=== PATIENT | female | born 1995 | race African-American/Black ===

== ENCOUNTER 2017-05-22 15:55 | Inpatient (IN) ==
[2017-05-22] MEDS ORDERED: DINOPROSTONE 10 MG VAG.INSERT VAG ONE (16:10)
[2017-05-22 16:30] LABS: Basophils # 0.1 10*3/uL (0.0-0.2); Basophils % 0.4 % (0.0-0.8); Eosinophils # 0.1 10*3/uL (0.0-0.87); Eosinophils % 0.8 % (0.00-10.9); Hematocrit 34.7 VOL% (35.7-47.0); Immature Granulocytes % 0.6 %; Immature Granulocytes Absolute 0.08 #; Lymphocytes # 1.6 10*3/uL (1.4-4.0); Lymphocytes % 11.3 % (21.3-54.2); Mean Corpuscular HGB Conc 31.7 GM/DL (32-36); Mean Corpuscular Hemoglobin 25 PG (27-34); Mean Corpuscular Volume 79.2 FL (87-102); Mean Platelet Volume 10.9 FL (9.6-12.0); Monocytes # 1.1 10*3/uL (0.11-0.8); Monocytes % 7.8 % (1.7-12.7); NRBC # 0.02 10*3/uL; Neutrophils % 79.1 % (38.7-73.9); Platelet Count 392 T/CUMM (130-400); Red Blood Count 4.38 MC/CUMM (3.8-5.5); White Blood Count 13.8 T/CUMM (4-12)
[2017-05-22 16:59] LABS: Alanine Aminotransferase 14 U/L (13-56); Albumin 2.6 G/DL (3.4-5.0); Alkaline Phosphatase 195 U/L (45-117); Aspartate Amino Transferase 24 U/L (0-37); Bilirubin,Total < 0.39 MG/DL (0.2-1.0); Blood Urea Nitrogen 7 MG/DL (7-18); Total Protein 7.2 G/DL (6.4-8.3)
[2017-05-22 17:00] LABS: Glucose 86 MG/DL (74-106); Potassium 4.4 MMOL/L (3.5-5.1); Sodium 136 MMOL/L (136-145)
[2017-05-22 19:48] LABS: INR 0.9; PT Patient Result 9.3 SECS; Partial Thromboplastin Time 26.2 SECS (0-40)
[2017-05-22 20:06] LABS: Alanine Aminotransferase 15 U/L (13-56); Albumin 2.9 G/DL (3.4-5.0); Alkaline Phosphatase 203 U/L (45-117); Aspartate Amino Transferase 21 U/L (0-37); Bilirubin,Total < 0.39 MG/DL (0.2-1.0); Blood Urea Nitrogen 9 MG/DL (7-18); Calcium 8.5 MG/DL (8.5-10.1); Glucose 87 MG/DL (74-106); Osmolality,Calculated 270.8 MOS/KG (273-304); Potassium 4.4 MMOL/L (3.5-5.1); Sodium 137 MMOL/L (136-145); Total Protein 7.2 G/DL (6.4-8.3); Uric Acid 3.7 MG/DL (2.6-6.0)
[2017-05-22] MEDS ORDERED: BUTORPHANOL 1 MG/ML VIAL IV PRN (23:55)
[2017-05-23] MEDS: LACTATED RINGERS 1,000 ML IV SCH ×2 (00:05→07:58)
[2017-05-23] MEDS: BUTORPHANOL 2 MG/ML VIAL IV PRN ×2 (00:20→07:42)
[2017-05-23] MEDS: ONDANSETRON 4 MG/2 ML VIAL IV PRN ×2 (00:20→07:51)
[2017-05-23] MEDS ORDERED: ceFAZolin 1,000 MG in SYRINGE 1 EACH IV SCH (02:15)
[2017-05-23] MEDS ORDERED: OXYTOCIN/LR 20 UNIT/1,000 ML BAG IV SCH (06:00)
[2017-05-23] MEDS ORDERED: AMPICILLIN INJ 2,000 MG in SODIUM CHLORIDE 0.9% 50 ML IV ONE (06:13)
[2017-05-23] MEDS ORDERED: ePHEDrine 50 MG/ML AMP IV PRN (11:16)
[2017-05-23] MEDS ORDERED: LACTATED RINGERS 1,000 ML IV ONE (11:16)
[2017-05-23] MEDS ORDERED: diphenhydrAMINE 50 MG/1 ML VIAL IV PRN ×2 (11:16)
[2017-05-23] MEDS ORDERED: PROMETHAZINE 25 MG/1 ML VIAL IM ONE (11:16)
[2017-05-23] MEDS ORDERED: FAMOTIDINE 20 MG/2 ML VIAL IV ONE (11:16)
[2017-05-23] MEDS ORDERED: CITRIC ACID/SODIUM CITRATE 30 ML UDCUP PO ONE (11:16)
[2017-05-23] MEDS ORDERED: hydrOXYzine HCL 25 MG/1 ML VIAL IM PRN (11:16)
[2017-05-23] MEDS ORDERED: fentaNYL 2 MCG/ROPIV 0.2% EPID 150 ML EPIDURAL SCH (11:30)
[2017-05-23] MEDS ORDERED: LACTATED RINGERS 1,000 ML IV SCH ×2 (11:30→19:00)
[2017-05-23 14:01] LABS: Apearance,Urine CLEAR (Clear); Bilirubin,Urine Negative (Negative); Blood, Urine Negative (Negative); Glucose,Urine (UA) Negative (Negative); Ketones,Urine Negative (Negative); Nitrite,Urine Negative (Negative); Protein,Urine Negative; Urine Color Yellow (Yellow); Urine Specific Gravity 1.011 (1.001-1.035)
[2017-05-23 14:02] LABS: Mucus,Urine Occasional /LPF (Occasional); Urine Urobilinogen < 2.0 EU/DL (0.2-1.0); WBC,Urine 1 /HPF (0-6)
[2017-05-23] MEDS: AMPICILLIN INJ 1,000 MG in SODIUM CHLORIDE 0.9% 100 ML IV SCH ×2 (14:05→18:43)
[2017-05-23] MEDS ORDERED: TERBUTALINE 1 MG/1 ML VIAL SUBCUT ONE ×2 (17:49→17:51)
[2017-05-23 18:34] LABS: Cord Arterial Blood HCO3 17.5 MMOL/L
[2017-05-23 18:36] LABS: Cord Venous Blood HCO3 24.4 MMOL/L; Cord Venous Blood PCO2 54.8 MMHG; Cord Venous Blood PO2 24.5 MMHG
[2017-05-23] MEDS ORDERED: TISSUE ADHESIVE 1 EACH APPLICATOR TOP ONE (18:42)
[2017-05-23] MEDS ORDERED: OXYTOCIN/LR 20 UNIT/1,000 ML BAG IV ONE (18:58)
[2017-05-23] MEDS ORDERED: ACETAMINOPHEN 325 MG TABLET PO PRN (18:58)
[2017-05-23] MEDS ORDERED: RHO(D) IMMUNE GLOBULIN 300 MCG SYRINGE IM ONE (18:58)
[2017-05-23] MEDS ORDERED: ONDANSETRON 4 MG/2 ML VIAL IV PRN (18:58)
[2017-05-23] MEDS ORDERED: MORPHINE 10 MG/10 ML VIAL ONE (19:07)
[2017-05-24] MEDS: ONDANSETRON 4 MG/2 ML VIAL IV PRN (00:14)
[2017-05-24] MEDS ORDERED: ceFAZolin 1,000 MG in SYRINGE 1 EACH IV SCH (02:00)
[2017-05-24] MEDS: DOCUSATE SODIUM 100 MG CAPSULE PO SCH ×3 (05:19→23:11)
[2017-05-24] MEDS: MAGNESIUM HYDROXIDE SUSP 30 ML UDCUP PO PRN ×2 (10:03→23:11)
[2017-05-24] MEDS: MULTIVITAMIN (PRENATAL) TABLET PO SCH (10:03)
[2017-05-24] MEDS: SIMETHICONE CHEW 80 MG TABLET PO PRN ×2 (10:04→23:11)
[2017-05-24] MEDS: IBUPROFEN 800 MG TABLET PO PRN (11:26)
[2017-05-25] MEDS: IBUPROFEN 800 MG TABLET PO PRN ×2 (00:01→12:30)
[2017-05-25] MEDS ORDERED: HYDROCORTISONE 2.5% RECTAL CREAM 30 GM TUBE TOP PRN (01:23)
[2017-05-25] MEDS ORDERED: WITCH HAZEL PADS 100/JAR TOP PRN (01:23)
[2017-05-25 07:14] VITALS: BP 125/80
[2017-05-25] MEDS: SIMETHICONE CHEW 80 MG TABLET PO PRN (09:42)
[2017-05-25] MEDS: MAGNESIUM HYDROXIDE SUSP 30 ML UDCUP PO PRN (09:43)
[2017-05-25] MEDS: MULTIVITAMIN (PRENATAL) TABLET PO SCH (09:44)
[2017-05-25] MEDS: DOCUSATE SODIUM 100 MG CAPSULE PO SCH (09:44)
[2017-05-25] MEDS ORDERED: INFLUENZA VIRUS VACCINE 0.5 ML SYRINGE IM ONE (10:42)
== END 2017-05-25 13:00 | disposition home or self-care (01) | DRG 540 ==
LOC: N.LDOUT 15:55 → N.LD 16:01 → N.OB 05-23 22:00
PROVIDERS: ADMIT Obstetrics & Gynecology; ATTEND Obstetrics & Gynecology
PROC: LDCSECT (ICD-10-PCS; 2017-05-23 18:00)

== ENCOUNTER 2020-09-17 03:15 | Inpatient (IN) ==
[2020-09-17 02:54] LABS: Bacteria,Urine Occasional /HPF (Few); Bilirubin,Urine Negative (Negative); Blood, Urine Negative (Negative); Glucose,Urine (UA) Negative (Negative); Ketones,Urine Negative (Negative); Mucus,Urine Occasional /LPF (Occasional); Nitrite,Urine Negative (Negative); Protein,Urine Negative; RBC,Urine 2 /HPF (0-4); Squamous Epithelial Cell,Urine Occasional /HPF (0-10); Urine Appearance CLEAR (Clear); Urine Color Yellow (Yellow); Urine Specific Gravity 1.006 (1.001-1.035); Urine Urobilinogen < 2.0 EU/DL (0.2-1.0)
[2020-09-17] MEDS ORDERED: CITRIC ACID/SODIUM CITRATE 30 ML UDCUP PO ONE (03:16)
[2020-09-17] MEDS ORDERED: FAMOTIDINE 20 MG/2 ML VIAL IV ONE (03:16)
[2020-09-17] MEDS ORDERED: TRANEXAMIC ACID 1,000 MG/10 ML VIAL ONE (03:33)
[2020-09-17] MEDS ORDERED: miSOPROStoL 200 MCG TABLET ONE (03:33)
[2020-09-17] MEDS ORDERED: METHYLERGONOVINE 0.2 MG/1 ML AMP ONE (03:33)
[2020-09-17] MEDS ORDERED: CARBOPROST TROMETHAMINE 250 MCG/ML AMP IM ONE (03:34)
[2020-09-17 04:41] LABS: Albumin 2.5 G/DL (3.4-5.0); Bilirubin,Total 0.4 MG/DL (0.2-1.0); Calcium 8.8 MG/DL (8.5-10.1); Osmolality,Calculated 269.8 MOS/KG (273-304); Potassium 3.6 MMOL/L (3.5-5.1); Total Protein 7.7 G/DL (6.4-8.2)
[2020-09-17 04:53] LABS: Basophils # 0.1 10*3/uL (0.0-0.2); Basophils % 0.8 % (0.0-0.8); Eosinophils # 0.1 10*3/uL (0.0-0.87); Eosinophils % 0.5 % (0.00-10.9); Hematocrit 27.6 VOL% (35.7-47.0); Immature Granulocytes % 0.5 %; Immature Granulocytes Absolute 0.06 #; Lymphocytes % 16.4 % (21.3-54.2); Mean Corpuscular Volume 69.2 FL (87-102); Mean Platelet Volume 11.6 FL (9.6-12.0); Monocytes % 9.1 % (1.7-12.7); NRBC # 0.05 10*3/uL; Neutrophils % 72.7 % (38.7-73.9); Platelet Count 384 T/CUMM (130-400); Red Blood Count 3.99 MC/CUMM (3.8-5.5); Red Cell Distribution Width 24.7 % (9.3-17.3); White Blood Count 11.9 T/CUMM (4-12)
[2020-09-17] MEDS: LACTATED RINGERS 1,000 ML IV SCH ×2 (05:23→06:41)
[2020-09-17] MEDS ORDERED: BUPIVACAINE SPINAL 0.75% 2 ML AMP SPINAL ONE (07:15)
[2020-09-17] MEDS ORDERED: OXYTOCIN/LR 20 UNIT/1,000 ML BAG IV ONE ×2 (08:00→08:32)
[2020-09-17] MEDS ORDERED: ACETAMINOPHEN INJ 1,000 MG/100 ML VIAL IV ONE (08:05)
[2020-09-17] MEDS ORDERED: KETOROLAC 30 MG/1 ML VIAL ONE (08:05)
[2020-09-17] MEDS ORDERED: DEXAMETHASONE 4 MG/1 ML VIAL ONE ×2 (08:05)
[2020-09-17] MEDS ORDERED: ONDANSETRON 4 MG/2 ML VIAL ONE (08:05)
[2020-09-17 08:21] LABS: Cord Arterial Blood HCO3 19.7 MMOL/L
[2020-09-17 08:24] LABS: Cord Venous Blood HCO3 21.3 MMOL/L; Cord Venous Blood PO2 20.4
[2020-09-17 08:27] LABS: Bilirubin,Urine Negative (Negative); Blood, Urine Negative (Negative); Glucose,Urine (UA) Negative (Negative); Ketones,Urine Negative (Negative); Nitrite,Urine Negative (Negative); Protein,Urine Negative; RBC,Urine 1 /HPF (0-4); Squamous Epithelial Cell,Urine Occasional /HPF (0-10); Urine Appearance CLEAR (Clear); Urine Color Yellow (Yellow); Urine Specific Gravity 1.018 (1.001-1.035); Urine Urobilinogen < 2.0 EU/DL (0.2-1.0)
[2020-09-17] MEDS ORDERED: oxyCODONE/ACETAMINOPHEN 5-325 MG TABLET PO PRN ×2 (08:32)
[2020-09-17] MEDS ORDERED: DIPH/TET/ACEL PERT BOOSTER VACCINE 0.5 ML VIAL IM ONE (08:32)
[2020-09-17] MEDS ORDERED: IBUPROFEN 800 MG TABLET PO PRN (08:32)
[2020-09-17] MEDS ORDERED: WITCH HAZEL PADS 100/JAR TOP PRN (08:32)
[2020-09-17] MEDS ORDERED: RHO(D) IMMUNE GLOBULIN 300 MCG SYRINGE IM ONE (08:32)
[2020-09-17] MEDS ORDERED: BISACODYL 10 MG SUPP RECTAL PRN (08:32)
[2020-09-17] MEDS ORDERED: HYDROCORTISONE 2.5% RECTAL CREAM 30 GM TUBE TOP PRN (08:32)
[2020-09-17] MEDS ORDERED: MEASLES/MUMPS/RUBELLA VACCINE 0.5 ML VIAL SUBCUT ONE (08:32)
[2020-09-17] MEDS ORDERED: BENZOCAINE 20%/MENTHOL 0.5% SPRAY 56 GM CAN TOP PRN (08:32)
[2020-09-17] MEDS ORDERED: ONDANSETRON 4 MG/2 ML VIAL IV PRN (08:32)
[2020-09-17] MEDS ORDERED: LANOLIN 50% CREAM 0.3 OZ TUBE TOP PRN (08:32)
[2020-09-17] MEDS ORDERED: ACETAMINOPHEN 325 MG TABLET PO PRN (08:32)
[2020-09-17] MEDS ORDERED: DOCUSATE SODIUM 100 MG CAPSULE PO SCH (09:00)
[2020-09-17] MEDS ORDERED: KETOROLAC 30 MG/1 ML VIAL IV SCH (14:00)
[2020-09-17] MEDS ORDERED: ACETAMINOPHEN 500 MG TABLET PO SCH (14:00)
[2020-09-17] MEDS: ACETAMINOPHEN 500 MG TABLET PO SCH ×2 (14:20→20:26)
[2020-09-17] MEDS: KETOROLAC 30 MG/1 ML VIAL IV SCH ×2 (14:22→20:27)
[2020-09-17] MEDS: diphenhydrAMINE CAP 25 MG CAPSULE PO PRN ×2 (16:24→23:45)
[2020-09-17] MEDS: MULTIVITAMIN (PRENATAL) TABLET PO SCH (18:23)
[2020-09-18] MEDS: ACETAMINOPHEN 500 MG TABLET PO SCH (02:01)
[2020-09-18] MEDS: KETOROLAC 30 MG/1 ML VIAL IV SCH (02:02)
[2020-09-18 05:29] LABS: Basophils # 0.1 10*3/uL (0.0-0.2); Basophils % 0.3 % (0.0-0.8); Eosinophils % 0.1 % (0.00-10.9); Hematocrit 20.4 VOL% (35.7-47.0); Immature Granulocytes % 0.7 %; Immature Granulocytes Absolute 0.13 #; Lymphocytes # 1.9 10*3/uL (1.4-4.0); Lymphocytes % 10.5 % (21.3-54.2); Mean Corpuscular HGB Conc 28.4 GM/DL (32-36); Mean Corpuscular Volume 70.6 FL (87-102); Monocytes % 9.4 % (1.7-12.7); NRBC # 0.05 10*3/uL; Platelet Count 364 T/CUMM (130-400); Red Blood Count 2.89 MC/CUMM (3.8-5.5); Red Cell Distribution Width 24.4 % (9.3-17.3); White Blood Count 18.3 T/CUMM (4-12)
[2020-09-18 05:33] LABS: Hemoglobin 5.8 GM/DL (12.0-16.0)
[2020-09-18 05:58] LABS: Hypochromasia 2+; Microcytosis 1+
[2020-09-18 05:59] LABS: Platelet Estimate Adequate
[2020-09-18 06:28] LABS: Hematocrit 21.5 VOL% (35.7-47.0)
[2020-09-18 06:29] LABS: Hemoglobin 6.1 GM/DL (12.0-16.0)
[2020-09-18] MEDS ORDERED: SIMETHICONE CHEW 80 MG TABLET PO PRN (08:03)
[2020-09-18] MEDS: MAGNESIUM HYDROXIDE SUSP 30 ML UDCUP PO PRN ×2 (08:20→21:17)
[2020-09-18] MEDS: diphenhydrAMINE CAP 25 MG CAPSULE PO PRN (08:21)
[2020-09-18] MEDS: MULTIVITAMIN (PRENATAL) TABLET PO SCH (08:21)
[2020-09-18] MEDS: DOCUSATE SODIUM 100 MG CAPSULE PO SCH ×2 (08:21→21:17)
[2020-09-18] MEDS: FERROUS SULFATE 325 MG TABLET PO SCH ×3 (08:21→21:17)
[2020-09-18] MEDS: IBUPROFEN 800 MG TABLET PO PRN ×2 (09:51→22:34)
[2020-09-18] MEDS: oxyCODONE/ACETAMINOPHEN 5-325 MG TABLET PO PRN ×2 (13:15→21:17)
[2020-09-19] MEDS: oxyCODONE/ACETAMINOPHEN 5-325 MG TABLET PO PRN ×2 (04:15→09:28)
[2020-09-19] MEDS: DOCUSATE SODIUM 100 MG CAPSULE PO SCH (08:28)
[2020-09-19] MEDS: FERROUS SULFATE 325 MG TABLET PO SCH (08:28)
[2020-09-19] MEDS: MULTIVITAMIN (PRENATAL) TABLET PO SCH (08:28)
[2020-09-19] MEDS: IBUPROFEN 800 MG TABLET PO PRN (09:28)
[2020-09-19 10:05] VITALS: BP 135/82
== END 2020-09-19 13:35 | disposition home or self-care (01) | DRG 540 ==
LOC: N.LD → N.OB 11:40
PROVIDERS: ADMIT Specialist; ATTEND Specialist
PROC: LDCSECT (ICD-10-PCS; 2020-09-17 07:30)

== ENCOUNTER 2022-04-22 20:47 | Inpatient (IN) ==
[2022-04-22] MEDS ORDERED: VANCOMYCIN INJ 1,000 MG in SODIUM CHLORIDE 0.9% 250 ML IV STA (21:28)
[2022-04-22] MEDS ORDERED: cefTRIAXone 2,000 MG in SODIUM CHLORIDE 0.9% 100 ML IV STA (21:29)
[2022-04-22] MEDS ORDERED: KETOROLAC 30 MG/1 ML VIAL IV STA (21:39)
[2022-04-22 22:06] LABS: Alanine Aminotransferase 39 U/L (13-56); Albumin 3.7 G/DL (3.4-5.0); Alkaline Phosphatase 47 U/L (45-117); Aspartate Amino Transferase 40 U/L (0-37); Blood Urea Nitrogen 12 MG/DL (7-18); Calcium 8.6 MG/DL (8.5-10.1); Carbon Dioxide 23 MMOL/L (21-32); Chloride 107 MMOL/L (98-107); Glucose 112 MG/DL (74-106); Potassium 3.8 MMOL/L (3.5-5.1); Sodium 136 MMOL/L (136-145); Total Protein 7.9 G/DL (6.4-8.2)
[2022-04-22 22:18] LABS: Basophils % 0.3 % (0.0-0.8); Immature Granulocytes % 0.4 %; Immature Granulocytes Absolute 0.04 #; Lymphocytes # 0.3 10*3/uL (1.4-4.0); Lymphocytes % 3.7 % (21.3-54.2); Mean Corpuscular HGB Conc 28.1 GM/DL (32-36); Mean Corpuscular Volume 63.1 FL (87-102); Monocytes % 0.2 % (1.7-12.7); Neutrophils % 95.4 % (38.7-73.9); Red Blood Count 2.71 MC/CUMM (3.8-5.5); Red Cell Distribution Width 30.5 % (9.3-17.3)
[2022-04-22 22:21] LABS: Hematocrit 17.1 VOL% (35.7-47.0); Hemoglobin 4.8 GM/DL (12.0-16.0); Platelet Count 928 T/CUMM (130-400)
[2022-04-22 22:21] LABS: Bilirubin,Urine Negative (Negative); Blood, Urine Trace mg/dL (Negative); Glucose,Urine (UA) Negative (Negative); Ketones,Urine Negative (Negative); Nitrite,Urine Positive (Negative); Protein,Urine Negative (Negative); Urine Appearance Clear (Clear); Urine Color Yellow (Yellow); Urine Specific Gravity <= 1.005 (1.001-1.035); Urine Urobilinogen 0.2 eU/dL (<2.0)
[2022-04-22 22:24] LABS: Amorphous Crystals,Urine Occasional /HPF (Few); Mucus,Urine Occasional /LPF (Occasional); RBC,Urine 1 /HPF (0-4); Squamous Epithelial Cell,Urine Occasional /HPF (0-10)
[2022-04-22 22:30] LABS: Barbiturates Screen,Urine Positive (Negative); Benzodiazepines Screen,Urine Negative (Negative); Cannabinoid Screen,Urine Negative (Negative); Opiate Screen,Urine Negative (Negative); Phencyclidine Screen,Urine Negative (Negative)
[2022-04-22 22:39] LABS: Band Neutrophils 1 % (0-10); Lymphocytes 5 % (20-55); Platelet Estimate Increased
[2022-04-22 22:41] LABS: Hypochromia 4+; Microcytosis 2+; Ovalocytes Few; Target Cells Few; Total Cells Counted 100
[2022-04-22] MEDS ORDERED: SODIUM CHLORIDE 0.9% 1,000 ML IV PRN (22:56)
[2022-04-22] MEDS ORDERED: FUROSEMIDE 20 MG/2 ML VIAL IV PRN (22:56)
[2022-04-22] MEDS ORDERED: ACYCLOVIR IV SCH (23:00)
[2022-04-22] MEDS ORDERED: SODIUM CHLORIDE 0.9% IV SCH (23:00)
[2022-04-22 23:23] LABS: Sedimentation Rate-Westergren 30 MM/HR (0-20)
[2022-04-23] MEDS ORDERED: ACETAMINOPHEN 500 MG TABLET PO STA (00:17)
[2022-04-23] MEDS ORDERED: GABAPENTIN 300 MG CAPSULE PO ONE (00:18)
[2022-04-23 00:33] LABS: Glucose,CSF 75 MG/DL (40-70)
[2022-04-23] MEDS ORDERED: MORPHINE 2 MG/1 ML SYRINGE IV PRN (01:00)
[2022-04-23] MEDS ORDERED: ACETAMINOPHEN 325 MG TABLET PO PRN (01:00)
[2022-04-23] MEDS ORDERED: ONDANSETRON 4 MG/2 ML VIAL IV PRN (01:00)
[2022-04-23] MEDS ORDERED: guaiFENesin/DM ER 600-30 MG TABLET PO PRN (01:00)
[2022-04-23] MEDS ORDERED: hydrALAZINE 20 MG/1 ML VIAL IV PRN (01:00)
[2022-04-23] MEDS ORDERED: NICOTINE 21 MG/24 HR PATCH TRANSDERM PRN (01:00)
[2022-04-23] MEDS ORDERED: OSELTAMIVIR 75 MG CAPSULE PO STA (01:04)
[2022-04-23 01:20] LABS: Appearance,CSF Clear; Lymphocytes,CSF 50 %; Neutrophils,CSF 50 %; Red Blood Cell,CSF 16 C/CUMM; White Blood Cell,CSF 2 C/CUMM
[2022-04-23] MEDS: SODIUM CHLORIDE 0.9% 1,000 ML IV SCH ×4 (02:00→18:57)
[2022-04-23] MEDS ORDERED: ACYCLOVIR IV SCH (08:00)
[2022-04-23] MEDS ORDERED: SODIUM CHLORIDE 0.9% IV SCH (08:00)
[2022-04-23] MEDS: PANTOPRAZOLE 40 MG TABLET PO SCH (09:35)
[2022-04-23 09:52] LABS: Basophils # 0.1 10*3/uL (0.0-0.2); Basophils % 0.9 % (0.0-0.8); Eosinophils % 0.3 % (0.00-10.9); Immature Granulocytes % 0.6 %; Immature Granulocytes Absolute 0.05 #; Lymphocytes # 0.3 10*3/uL (1.4-4.0); Lymphocytes % 3.7 % (21.3-54.2); Mean Corpuscular HGB Conc 29.6 GM/DL (32-36); Mean Corpuscular Volume 69.9 FL (87-102); Mean Platelet Volume 8.9 FL (9.6-12.0); Monocytes # 0.2 10*3/uL (0.11-0.8); Neutrophils % 92.5 % (38.7-73.9); Red Cell Distribution Width 31.2 % (9.3-17.3); White Blood Count 8.6 T/CUMM (4-12)
[2022-04-23 09:56] LABS: Red Blood Count 3.29 MC/CUMM (3.8-5.5)
[2022-04-23 09:57] LABS: Hemoglobin 6.8 GM/DL (12.0-16.0)
[2022-04-23 09:59] LABS: Platelet Count 639 T/CUMM (130-400)
[2022-04-23 10:09] LABS: Bilirubin,Total 1.3 MG/DL (0.20-1.00); Calcium 7.9 MG/DL (8.5-10.1); Osmolality,Calculated 280.3 MOS/KG (273-304); Potassium 4.1 MMOL/L (3.5-5.1); Total Protein 6.7 G/DL (6.4-8.2)
[2022-04-23 10:18] LABS: Band Neutrophils 1 % (0-10); Eosinophils 2 % (0-10); Lymphocytes 5 % (20-55); Total Cells Counted 100
[2022-04-23 10:19] LABS: Hypochromia 1+; Microcytosis 2+; Spherocytes Slight
[2022-04-23 10:20] LABS: Ovalocytes Slight
[2022-04-23] MEDS ORDERED: VANCOMYCIN INJ 1,250 MG in SODIUM CHLORIDE 0.9% 250 ML IV SCH (11:00)
[2022-04-23] MEDS ORDERED: ACYCLOVIR INJ 1,000 MG in SODIUM CHLORIDE 0.9% 250 ML IV SCH (12:00)
[2022-04-23] MEDS: FERROUS SULFATE 325 MG TABLET PO SCH ×2 (12:02→21:25)
[2022-04-23] MEDS ORDERED: SUMAtriptan 25 MG TABLET PO ONE (13:57)
[2022-04-23] MEDS: BUTALBITAL/ACETAMIN/CAFFEINE 50-325-40 MG TABLET PO PRN (17:04)
[2022-04-23] MEDS: OSELTAMIVIR 75 MG CAPSULE PO SCH (21:25)
[2022-04-23] MEDS: cefTRIAXone 1,000 MG in SODIUM CHLORIDE 0.9% 100 ML IV SCH (21:25)
[2022-04-23] MEDS: diphenhydrAMINE CAP 25 MG CAPSULE PO PRN (21:59)
[2022-04-23] MEDS: ZALEPLON 5 MG CAPSULE PO PRN (21:59)
[2022-04-23] MEDS ORDERED: cefTRIAXone 2,000 MG in SODIUM CHLORIDE 0.9% 100 ML IV SCH (22:00)
[2022-04-24] MEDS: SODIUM CHLORIDE 0.9% 1,000 ML IV SCH ×3 (01:18→15:39)
[2022-04-24 05:51] LABS: Basophils # 0.1 10*3/uL (0.0-0.2); Basophils % 2.2 % (0.0-0.8); Eosinophils % 0.4 % (0.00-10.9); Hematocrit 22.2 VOL% (35.7-47.0); Hemoglobin 6.5 GM/DL (12.0-16.0); Immature Granulocytes % 0.4 %; Immature Granulocytes Absolute 0.02 #; Lymphocytes # 1.3 10*3/uL (1.4-4.0); Lymphocytes % 29.1 % (21.3-54.2); Mean Corpuscular HGB Conc 29.3 GM/DL (32-36); Mean Corpuscular Volume 70.3 FL (87-102); Mean Platelet Volume 9.3 FL (9.6-12.0); Monocytes # 0.5 10*3/uL (0.11-0.8); Neutrophils % 56.9 % (38.7-73.9); Red Blood Count 3.16 MC/CUMM (3.8-5.5)
[2022-04-24 05:56] LABS: Platelet Count 464 T/CUMM (130-400); White Blood Count 4.5 T/CUMM (4-12)
[2022-04-24 06:06] LABS: Eosinophils 5 % (0-10); Lymphocytes 31 % (20-55); Nucleated Red Blood Cells 1 /100 WBC (0-5); Total Cells Counted 100
[2022-04-24 06:07] LABS: Hypochromia 1+; Microcytosis 1+; Platelet Estimate Increased
[2022-04-24] MEDS: OSELTAMIVIR 75 MG CAPSULE PO SCH ×2 (08:20→21:30)
[2022-04-24] MEDS: FERROUS SULFATE 325 MG TABLET PO SCH ×2 (08:20→21:31)
[2022-04-24] MEDS: PANTOPRAZOLE 40 MG TABLET PO SCH (08:21)
[2022-04-24] MEDS: BUTALBITAL/ACETAMIN/CAFFEINE 50-325-40 MG TABLET PO PRN (08:32)
[2022-04-24] MEDS: cefTRIAXone 1,000 MG in SODIUM CHLORIDE 0.9% 100 ML IV SCH (21:29)
[2022-04-24] MEDS: diphenhydrAMINE CAP 25 MG CAPSULE PO PRN (21:30)
[2022-04-24] MEDS: ZALEPLON 5 MG CAPSULE PO PRN (21:31)
[2022-04-25] MEDS: PANTOPRAZOLE 40 MG TABLET PO SCH (09:23)
[2022-04-25] MEDS: SODIUM CHLORIDE 0.9% 1,000 ML IV SCH (09:23)
[2022-04-25] MEDS: OSELTAMIVIR 75 MG CAPSULE PO SCH (09:23)
[2022-04-25] MEDS: FERROUS SULFATE 325 MG TABLET PO SCH (09:23)
[2022-04-25 12:32] VITALS: BP 130/72
[2022-04-25 13:12] LABS: Basophils # 0.1 10*3/uL (0.0-0.2); Basophils % 1.7 % (0.0-0.8); Eosinophils # 0.1 10*3/uL (0.0-0.87); Eosinophils % 1.1 % (0.00-10.9); Hematocrit 27.9 VOL% (35.7-47.0); Hemoglobin 8.1 GM/DL (12.0-16.0); Immature Granulocytes % 0.4 %; Immature Granulocytes Absolute 0.02 #; Lymphocytes # 1.4 10*3/uL (1.4-4.0); Lymphocytes % 28.7 % (21.3-54.2); Mean Corpuscular Volume 70.1 FL (87-102); Mean Platelet Volume 9.1 FL (9.6-12.0); Monocytes # 0.7 10*3/uL (0.11-0.8); Monocytes % 14.9 % (1.7-12.7); Neutrophils % 53.2 % (38.7-73.9); Platelet Count 499 T/CUMM (130-400); Red Blood Count 3.98 MC/CUMM (3.8-5.5); Red Cell Distribution Width 32.3 % (9.3-17.3); White Blood Count 4.7 T/CUMM (4-12)
[2022-04-25 13:40] LABS: Hypochromia 1+; Lymphocytes 27 % (20-55); Microcytosis 1+; Nucleated Red Blood Cells 1 /100 WBC (0-5); Ovalocytes Slight; Platelet Estimate Adequate; Total Cells Counted 100
[2022-04-25 13:41] LABS: Tear Drop Cells Slight
== END 2022-04-25 15:15 | disposition home or self-care (01) | DRG 463 ==
LOC: N.ED 20:47 → SUATTDRO 04-23 01:00 → N.EDINP 04-23 01:00 → N.TELEN 04-23 01:31
PROVIDERS: ADMIT Internal Medicine Geriatric Medicine; ATTEND Internal Medicine